=== PATIENT | male | born 1965 | race Caucasian/White ===

== ENCOUNTER 2023-10-07 23:33 | Emergency (ER) | payer MEDICAID ==
[~2023-10-07] VITALS: Ht 165.1 cm; Wt 70.3 kg
[2023-10-07 23:35] VITALS: BP 107/47; PULSE 67; RESP 19; TEMP 97.7; O2SAT 96
[2023-10-07 23:52] VITALS: TEMP 97.7; O2SAT 98
[2023-10-08] MEDS: NACL 0.9% 1,000 ML IV ONE (01:39)
[2023-10-08 02:29] VITALS: BP 97/64; PULSE 84; RESP 31; O2SAT 98
== END 2023-10-08 03:27 | disposition home or self-care (01) ==
LOC: MED 23:33
DX: T78.49XA Other allergy, initial encounter (principal); T50.905A Adverse effect of unspecified drugs, medicaments and biological substances, initial encounter; E11.9 Type 2 diabetes mellitus without complications; I10 Essential (primary) hypertension; E78.5 Hyperlipidemia, unspecified; Z95.0 Presence of cardiac pacemaker; X58.XXXA Exposure to other specified factors, initial encounter; Y92.89 Other specified places as the place of occurrence of the external cause
CPT/HCPCS: 96360; 99283; J7030